=== PATIENT | female | born 1950 | race Caucasian/White ===

== ENCOUNTER 2021-12-02 07:29 | Day surgery (SDC) | payer OTHER, BC ==
[2021-11-30 12:22] VITALS: BMI 28.7
[2021-12-02 10:06] VITALS: TEMP 97
[2021-12-02 10:12] VITALS: BP 92/45; PULSE 60
== END 2021-12-02 09:40 | disposition home or self-care (01) ==
LOC: FASU-ENDO 07:29
PROVIDERS: ATTEND Internal Medicine Gastroenterology
PROC: 0DJD8ZZ Inspection of Lower Intestinal Tract, Via Natural or Artificial Opening Endoscopic (ICD-10-PCS; principal; 2021-12-02 08:47)
DX: Z12.11 Encounter for screening for malignant neoplasm of colon (principal); Z83.71 Family history of colonic polyps